=== PATIENT | male | born 1980 | race Caucasian/White ===

== ENCOUNTER 2018-12-06 10:17 | Day surgery (SDC) | payer OTHER ==
[2018-12-05 13:13] VITALS: BMI 24.4
[2018-12-06 12:36] VITALS: TEMP 97
[2018-12-06 13:18] VITALS: BP 107/69; PULSE 69
--- NOTE | 2018-12-09 15:31 | PATH ---
Surgical Pathology Report Patient Name: ADALI COLBERT [facility]. Rec. #: [id number] /Age/Gender: 1980 (Age: 38) / M Account: [id number] Location: [facility]-ENDOSCOPY Taken: 12/06/2018 Received: 12/06/2018 Reported: 12/09/2018 Physicians: Piero Anthony M.D. Specimen(s) Received A: 2ND PORTION DUODENUM AND BULB B: ANTRUM C: BODY D: RIGHT COLON POLYP Clinical History MYH associated polyposis syndrome Postoperative diagnosis: Polyps in stomach, colon polyp, diverticulosis Final Diagnosis A. DUODENUM, SECOND PORTION AND DUODENAL BULB, BIOPSY: DUODENAL MUCOSA WITHOUT SIGNIFICANT PATHOLOGIC FINDINGS. B. STOMACH, ANTRUM, BIOPSY: GASTRIC ANTRAL MUCOSA WITH MILD CHRONIC GASTRITIS. IMMUNOHISTOCHEMICAL STAIN FOR H. PYLORI IS NEGATIVE. C. GASTRIC BODY, POLYPS, POLYPECTOMY: FUNDIC GLAND POLYP. IMMUNOHISTOCHEMICAL STAIN FOR H. PYLORI IS NEGATIVE. D. COLON, RIGHT, POLYP, POLYPECTOMY: TUBULAR ADENOMA. Electronically Signed Brandie Poe M.D. Gross Description A. Received in formalin, labeled "biopsy second portion of duodenum and duodenal bulb" are 4 lima, irregular portions of soft tissue ranging from 0.3-0.5 cm. in greatest dimension. The specimens are submitted in toto in one cassette. B. Received in formalin, labeled "biopsy antrum" are 2 lima, irregular portions of soft tissue measuring 0.2 and 0.9 cm. in greatest dimension. The specimens are submitted in toto in one cassette. C. Received in formalin, labeled "gastric body polyps" are 3 lima, irregular portions of soft tissue ranging from 0.4-0.5 cm. in greatest dimension. The specimens are submitted in toto in one cassette. D. Received in formalin, labeled "biopsy right colon polyp" are 2 lima, irregular portions of soft tissue averaging 0.3 cm. in greatest dimension. The specimens are submitted in toto in one cassette. 12/06/201812/06/2018
== END 2018-12-06 13:24 | disposition home or self-care (01) ==
LOC: JASU-ENDO 10:17
PROVIDERS: ATTEND Internal Medicine Gastroenterology
PROC: 0DB68ZX Excision of Stomach, Via Natural or Artificial Opening Endoscopic, Diagnostic (ICD-10-PCS; 2018-12-06)
PROC: 0DBK8ZX Excision of Ascending Colon, Via Natural or Artificial Opening Endoscopic, Diagnostic (ICD-10-PCS; principal; 2018-12-06 11:15)
DX: Z12.11 Encounter for screening for malignant neoplasm of colon (principal); Z86.010 Personal history of colon polyps; D12.2 Benign neoplasm of ascending colon; K57.30 Diverticulosis of large intestine without perforation or abscess without bleeding; K64.8 Other hemorrhoids; K31.7 Polyp of stomach and duodenum; K44.9 Diaphragmatic hernia without obstruction or gangrene
CPT/HCPCS: 88305-TC; 88342-TC